=== PATIENT | female | born 1970 | race Caucasian/White ===

== ENCOUNTER → 2016-05-18 | Outpatient (CLI) | payer BC ==
--- NOTE | 2016-05-18 13:46 | KCIC ---
Left breast ultrasound: Reason for examination: Followup nodules. Comparison is made to previous study dated 11/15/2015 and 01/21/2015. Ultrasound examination was performed with attention to the areas of previous concern. There continues to be a circumscribed nodule 7.2 millimeters in greatest dimension at the 1 o'clock position 6.5 centimeters per from the nipple consistent with a intramammary lymph node. At the 10 o'clock position 5 centimeters from the nipple, there continues to be a circumscribed hypoechoic 7 millimeter nodule which is consistent with a small complicated cyst. No other cystic or solid lesions are seen. No abnormal appearing lymph nodes are seen in the axilla. Impression: No change in the small nodule consistent with an intramammary lymph node at the 1 o'clock position or in the complicated cystic appearing lesion at the 10 o'clock position. Recommend routine mammographic followup. BI-RADS category 2: Benign. This patient's information has been entered into a reminder system for the patient to be notified with the results of this examination and a target date for her next mammograms. Electronically signed by: Eve Jeff MD (May 18, 2016 13:44:55)
== END | disposition home or self-care (01) ==
LOC: KCIC US 12:46
PROVIDERS: ATTEND Family Medicine
DX: R92.8 Other abnormal and inconclusive findings on diagnostic imaging of breast (principal); N63 Unspecified lump in breast
CPT/HCPCS: 76641

== ENCOUNTER → 2018-08-10 | Outpatient (CLI) | payer BC ==
--- NOTE | 2018-08-10 17:24 | KCIC ---
Bilateral digital screening mammograms with 3-D tomosynthesis: Reason for examination: Routine screening. Comparison is made to previous studies dated 01/16/2016 and 01/10/2015. Bilateral mammograms in CC and oblique projections were obtained with 2-D imaging and 3-D tomosynthesis imaging on a Siemens Inspiration unit and reviewed on the workstation. Interpretation was made with the benefit of CAD. The skin and nipples show no abnormalities. No abnormal axillary lymph nodes are seen. The breast parenchyma is heterogeneously dense. (Breast density: Category C.) There continues to be a nodule present posteriorly in the 1:00 position centrally in the right breast which contains a coarse calcification. This has increased in size now measuring 15 mm in greatest dimension but continues to be well-circumscribed and likely represents a cyst or fibroadenoma. There also continue to be additional smaller circumscribed nodules bilaterally most likely represent cysts and fibroadenoma. There are no suspicious calcifications or architectural distortion. Impression: Enlargement of the nodule seen centrally in the 1:00 C position of the right breast but it continues to be well-circumscribed and contains a coarse calcification and likely represents a cyst or fibroadenoma. Multiple small circumscribed lesions seen bilaterally which correspond to ultrasound examination which showed presence of cysts and fibroadenoma. No suspicious-appearing lesion seen. Your patient's mammogram demonstrates that she has dense breast tissue (breast density category C or D), which could hide abnormalities, and if she has other risk factors for breast cancer that have been identified, she might benefit from supplemental screening tests that may be suggested by you as her ordering physician. Dense breast tissue, in and of itself, is a relatively common condition. Therefore, this information is not provided to cause undue concern, but rather to raise your awareness and to promote discussion with your patient regarding the presence of other risk factors, in addition to dense breast tissue. Your patient's mammography results will be sent to her. BI-RAD Category 2: Benign. "Our facility is accredited by the [employer] Mammography Program." This patient's information has been entered into a reminder system for the patient to be notified with the results of her examination and a target date for the next mammogram. Electronically signed by: Stacy Jeff MD (08/10/2018 5:21 PM) [id number]
== END | disposition home or self-care (01) ==
LOC: KCIC MAMMO 12:31
PROVIDERS: ATTEND Family Medicine
DX: Z12.31 Encounter for screening mammogram for malignant neoplasm of breast (principal); N63.12 Unspecified lump in the right breast, upper inner quadrant
CPT/HCPCS: 77063; 77067

== ENCOUNTER → 2019-03-17 | Outpatient (CLI) | payer BC ==
--- NOTE | 2019-03-17 14:07 | KCIC ---
Two-view chest dated 03/17/2019. No comparison available. Clinical data indication: Cough and congestion. FINDINGS: PA and lateral views of the chest were obtained. Heart and mediastinal contours are within normal limits. There is some patchy and linear opacity in the perihilar regions. No consolidation or pleural effusion. No pneumothorax. IMPRESSION: No evidence of focal pneumonia. Mild prominent perihilar linear markings could be related to atelectasis or mild bronchial inflammatory process. Electronically signed by: Chris Plummer MD (03/17/2019 2:04 PM) [id number]
== END | disposition home or self-care (01) ==
LOC: KCIC 11:30
PROVIDERS: ATTEND Family Medicine
DX: R05 Cough (principal); R09.81 Nasal congestion
CPT/HCPCS: 71046